=== PATIENT | female | born 1985 ===

== ENCOUNTER 2018-01-01 15:15 | Emergency (ER) | payer OTHER ==
[2018-01-01 15:22] VITALS: BP 102/67; PULSE 75; RESP 18; TEMP 97.9; O2SAT 100
[2018-01-01] MEDS ORDERED: PROPARACAINE/FLUORESCEIN SOD 100 DROP/5 ML BOTTLE OD STA (15:34)
[2018-01-01] MEDS ORDERED: PROPARACAINE/FLUORESCEIN SOD 100 DROP/5 ML BOTTLE ONE (15:39)
[2018-01-01] MEDS ORDERED: Tdap Vaccine 0.5 ml Vial (10-64 yrs) IM ONE ×2 (15:56→16:15)
[2018-01-01] MEDS ORDERED: Tobramycin/Dexamethasone OPHT OINT OD ONE (16:15)
--- NOTE | 2018-01-01 16:16 | ED PDOC ---
HPI: Eye Injury/Pain Time Seen by Provider: 01/01/18 15:30 Chief Complaint (Nursing): Eye Problem History Per: Patient History/Exam Limitations: no limitations Onset/Duration Of Symptoms: Days Current Symptoms Are (Timing): Still Present Additional Complaint(s): 32-year-old female, presents to the emergency department with complaints of right eye pain. Pt states she has been wearing colored contacts intermittently for the past two weeks. She took the contacts off today and noted mild irritation in her eyes, associated with pain and cloudy vision in right eye. Past Medical History Reviewed: Historical Data, Nursing Documentation, Vital Signs Vital Signs: Last Vital Signs Temp 97.9 F 01/01/18 15:18 Pulse 75 01/01/18 15:18 Resp 18 01/01/18 15:18 BP 102/67 01/01/18 15:18 Pulse Ox 100 01/01/18 15:18 - Family History Family History: States: No Known Family Hx - Home Medications Home Medications: Ambulatory Orders Medication Instructions Recorded Ibuprofen [Motrin] 600 mg PO Q8 PRN #21 tab 01/01/18 Tobramycin 0.3% [Tobrex 0.3% Ophth 1 drop OD QID #1 bottle 01/01/18 Soln] - Allergies Allergies/Adverse Reactions: Allergies Allergy/AdvReac Type Severity Reaction Status Date / Time No Known Allergies Allergy Verified 01/01/18 15:18 Review of Systems Eyes: Positive for: Pain, Vision Change, Redness Physical Exam - Reviewed Nursing Documentation Reviewed: Yes Vital Signs Reviewed: Yes - Physical Exam Appears: Positive for: Non-toxic, No Acute Distress Head Exam: Positive for: ATRAUMATIC, NORMOCEPHALIC Skin: Positive for: Normal Color, Warm, Dry. Negative for: Rash Eye Exam: Positive for: Other (R eye: 20/100. L eye: 20/20. (+)Fluorescein uptake diffusely in right eye over cornea.) Neck: Positive for: Painless ROM Respiratory: Negative for: Accessory Muscle Use - ECG O2 Sat by Pulse Oximetry: 100 (RA) Medical Decision Making Medical Decision Making: Plan: * Adacel, Flucaine, Tobrex * Reassess and Disposition Progress: Patient notes moderate relief after Proparacain. She will receive Tobradex drops and an eye patch. Disposition - Clinical Impression Clinical Impression: Corneal injury due to contact lens - Patient ED Disposition Is Patient to be Admitted: No - Disposition Disposition: Routine/Home Disposition Time: 16:44 Condition: FAIR Prescriptions: Ibuprofen [Motrin] 600 mg PO Q8 PRN #21 tab PRN Reason: Pain, Moderate (4-7) Tobramycin 0.3% [Tobrex 0.3% Ophth Soln] 1 drop OD QID #1 bottle Instructions: Corneal Abrasion (DC)
[2018-01-01] MEDS ORDERED: Tobramycin 0.3% OPH OINT OD ONE (16:30)
== END 2018-01-01 17:20 | disposition home or self-care (01) ==
LOC: H.ER 15:15
DX: H18.821 Corneal disorder due to contact lens, right eye (principal)